=== PATIENT | female | born 1935 | race Caucasian/White ===

== ENCOUNTER → 2017-09-04 | Outpatient (CLI) | payer MEDICARE, OTHER ==
[~2017-09-04] MED LIST: ALDACTONE 25MG25 M1 PO; ASPIRIN E.C. 8181 MG PO; BENADRYL25 M2 PO; COUMADIN 22.5 MG/TAB PO; COUMADIN 5MG5 MG/TAB PO; LASIX 40MG TABL40 MG PO; LIPITOR 10MG10 MG PO; NIACIN250 M2 PO; NORCO 325 MG-51 TAB PO; OMEGA-3 FISH1000 MG PO; PACERONE200 MG PO; ROBITUSSIN A-C S1 M1 PO; VICTOZA6 MG/ML SC
== END ==
LOC: COL.RAD 13:00
DX: M51.27 Other intervertebral disc displacement, lumbosacral region (principal); M48.061 Spinal stenosis, lumbar region without neurogenic claudication; M43.8X6 Other specified deforming dorsopathies, lumbar region

== ENCOUNTER 2017-09-20 11:29 | Outpatient (CLI) | payer MEDICARE, OTHER ==
[~2017-09-20] VITALS: Ht 165.2 cm; Wt 78.0 kg
[2017-09-20] VITALS (9 sets, daily range): BP systolic 107–144; BP diastolic 56–83; PULSE 70–76; TEMP 98
[2017-09-20 12:29] LABS: INR 1.1 (0.8-3.0); PROTHROMBIN TIME 12.5 SECONDS (9.7-12.8)
[2017-09-20] MEDS ORDERED: COUMADIN 3MG3 MG/TAB PO (12:48)
[2017-09-20] MEDS ORDERED: AVAPRO TAB150 MG/TAB PO (12:49)
[2017-09-20] MEDS ORDERED: PEPCID 20MG TAB20 MG PO (12:51)
[2017-09-20] MEDS ORDERED: MICRO-K 10 EXT10 MEQ PO (12:58)
== END 2017-09-20 17:50 ==
LOC: COL.CAR 11:29
PROVIDERS: Radiology Diagnostic Radiology
DX: M80.08XA Age-related osteoporosis with current pathological fracture, vertebra(e), initial encounter for fracture (principal); I48.91 Unspecified atrial fibrillation; F32.9 Major depressive disorder, single episode, unspecified; I10 Essential (primary) hypertension; E11.9 Type 2 diabetes mellitus without complications; Z79.01 Long term (current) use of anticoagulants; Z88.2 Allergy status to sulfonamides
CPT/HCPCS: J2250; J3010; J7120

== ENCOUNTER 2020-09-24 06:35 | Outpatient (CLI) | payer MEDICARE, OTHER ==
[~2020-09-24] VITALS: Ht 165.4 cm; Wt 70.8 kg
[~2020-09-24 06:35] MED LIST changes: +AVAPRO TAB150 MG/TAB PO; +COUMADIN 3MG3 MG/TAB PO; +MICRO-K 10 EXT10 MEQ PO; +PEPCID 20MG TAB20 MG PO
[2020-09-24] MEDS ORDERED: NEXIUM 40MG40 MG PO (07:19)
[2020-09-24] MEDS ORDERED: VICTOZA6 MG/ML SQ (07:20)
[2020-09-24] MEDS ORDERED: ELIQUIS 2.5 PO (07:20)
[2020-09-24] MEDS ORDERED: CYMBALTA 60MG60 MG PO (07:22)
[2020-09-24] MEDS ORDERED: STOOL SOFTENER100 M2 PO (07:23)
[2020-09-24] MEDS ORDERED: MASON NATURAL2000 IU PO (07:23)
[2020-09-24] MEDS ORDERED: B-12 500 MCG PO (07:23)
[2020-09-24 07:32] VITALS: BP 133/9; PULSE 73; TEMP 98
[2020-09-24 09:13] VITALS: BP 152/77; PULSE 77
--- NOTE | 2020-09-24 09:15 | NUR ---
SEE MERGE DOCUMENTATION FOR MEDICATION ADMINISTRATION AND INTRA/POST PROCEDURE ASSESSMENTS.
[2020-09-24 10:00] VITALS: BP 135/67; PULSE 70
[2020-09-24 10:15] VITALS: BP 136/69; PULSE 73
[2020-09-24 10:30] VITALS: BP 118/65; PULSE 74
[2020-09-24 10:45] VITALS: BP 126/73; PULSE 71
--- NOTE | 2020-09-24 11:35 | NUR ---
Pt assisted by wheelchair to restroom and then out to daughter's car. DC instructions were reviewed with pt and daughter, both express understanding. Pt is steady with transfers from bed to wheelchair. Free of complaint with activity. She has tolerated sips of water without issue. IV DC'd with catheter intact, and site wrapped with coban.
== END 2020-09-24 11:40 | disposition home or self-care (01) ==
LOC: COL.CAR 06:35
DX: S32.010A Wedge compression fracture of first lumbar vertebra, initial encounter for closed fracture (principal); Z96.651 Presence of right artificial knee joint; Z90.710 Acquired absence of both cervix and uterus; Z90.49 Acquired absence of other specified parts of digestive tract; Z88.2 Allergy status to sulfonamides
CPT/HCPCS: C1713; J2250; J3010; J7120

== ENCOUNTER 2021-06-20 10:39 | Emergency (ER) | payer MEDICARE, OTHER ==
[~2021-06-20] VITALS: Ht 167.6 cm; Wt 75.9 kg
[~2021-06-20 10:39] MED LIST changes: +B-12 500 MCG PO; +CYMBALTA 60MG60 MG PO; +ELIQUIS 2.5 PO; +MASON NATURAL2000 IU PO; +NEXIUM 40MG40 MG PO; +STOOL SOFTENER100 M2 PO; +VICTOZA6 MG/ML SQ
[2021-06-20 10:40] VITALS: TEMP 98.4
[2021-06-20 11:31] LABS: HEMOGLOBIN 10.3 g/dl (12.5-16.0); MEAN CELL VOLUME 88 fl (80.0-100.0); MEAN CORPUSCULAR HEMOGLOBIN 28 pg (27-31); MEAN CORPUSCULAR HGB CONC 32 g/dl (33.0-37.0); MEAN PLATELET VOLUME 9.8 fl (7.4-10.4); PLATELET COUNT 201 K/mm3 (130-400); REDCELL DISTRIBUTION WIDTH-CV 14.8 % (11.5-14.5)
[2021-06-20 11:33] LABS: HEMATOCRIT 32.7 % (37.0-47.0)
[2021-06-20 11:43] LABS: EOSINOPHIL 3 % (0-4); LYMPHOCYTE 17 % (20.0-51.0); NEUTROPHILS 70 % (42.0-75.2); PLATELET ESTIMATE NORMAL (NORMAL)
[2021-06-20 11:44] LABS: HYPOCHROMIA 1+
[2021-06-20 11:49] LABS: ALBUMIN 2.9 gm/dL (3.4-4.8); ALKALINE PHOSPHATASE 98 U/L (40-150); AST,SGOT 12 U/L (5-34); BILIRUBIN,TOTAL 0.5 mg/dL (0.2-1.2); BLOOD UREA NITROGEN 12 mg/dL (10-20); C-REACTIVE PROTEIN 0.38 mg/dL (0.00-0.50); CALCIUM 9.1 mg/dL (8.4-10.2); CARBON DIOXIDE 23 mmol/L (23-31); CREATININE, serum 1.21 mg/dL (0.57-1.11); GLUCOSE 117 mg/dL (70-99); LIPASE 28 U/L (8-78); TOTAL PROTEIN 5.5 gm/dL (6.2-8.1)
[2021-06-20 12:04] LABS: ALANINE AMINOTRANSFERASE < 6 U/L (0-55); POTASSIUM 3.5 mmol/L (3.5-4.5); SODIUM 134 mmol/L (136-145)
[2021-06-20 12:05] LABS: CHLORIDE 99 mmol/L (98-107)
[2021-06-20 12:06] LABS: ANION GAP 12 mmol/L (7-16)
[2021-06-20 12:39] VITALS: BP 146/82; PULSE 106
== END 2021-06-20 13:31 | disposition home or self-care (01) ==
LOC: COL.ER 10:39
PROVIDERS: Family Medicine
DX: E86.0 Dehydration (principal); L98.499 Non-pressure chronic ulcer of skin of other sites with unspecified severity; I48.91 Unspecified atrial fibrillation; Z79.899 Other long term (current) drug therapy; Z79.01 Long term (current) use of anticoagulants
CPT/HCPCS: J7120

== ENCOUNTER → 2021-06-24 | Outpatient (CLI) | payer MEDICARE, OTHER | LOC: ZCOL.LAB 17:02 | DX: S81.801A Unspecified open wound, right lower leg, initial encounter (principal) ==